=== PATIENT | female | born 1975 | race Caucasian/White ===

== ENCOUNTER → 2016-12-28 | Day surgery (SDC) | payer OTHER ==
[~2016-12-28] MED LIST: BUPIVACAINE HCL PF 0.75% 30 ML VIAL ONE; BUPIVACAINE/EPINEPHRINE 0.25% PF 10 ML VIAL ONE; LACTATED RINGER'S 1000 ML INJ 1,000 ML ONE; LIDOCAINE 1.5%/EPINEPHrine 1:200,000 PF SOLN 30 ML AMP ONE; MIDAZOLAM HCL 5 MG/ML VIAL (1 ML) ONE; ONDANSETRON HCL 4 MG/2 ML VIAL IV PUSH ONE; PROPOFOL 200 MG/20 ML AMP IV ONE; ZYRT10TA12 PO; ceFAZolin INJ 1,000 MG VIAL ONE
--- NOTE | 2016-12-28 15:36 | TN ---
cc: MAYDA SPEARS MD DATE OF SURGERY: 12/28/2016 ATTENDING PHYSICIAN/SURGEON Dr. Spears. PREOPERATIVE DIAGNOSIS Left shoulder impingement syndrome. POSTOPERATIVE DIAGNOSIS Left shoulder impingement syndrome. PROCEDURE Left shoulder arthroscopy with subacromial decompression including anterior acromioplasty and coracoacromial ligament release. PROCEDURE IN DETAIL Informed consent was obtained. The patient was taken to the operating room and placed in the supine position on the operating table. She was administered general anesthesia by Dr. Miller of the Anesthesia Department. The patient was placed in the lateral decubitus position with a beanbag and at that time her shoulder was placed through a range of motion. There was no evidence of adhesive capsulitis. The shoulder was then prepped with Betadine soap followed by Betadine paint. Sterile towels, sterile U drape, stockinette was applied to the hand and forearm. This was wrapped with Coban and the sterile rope was applied to the stockinette which had a hook for the shoulder unger. This was placed over the Accufix shoulder unger and a time-out was held and confirmed. At that time it was noted the patient had been given a gram of Ancef prior to initiation of the operative procedure. At that time an 18 gauge spinal needle was placed approximately 1 cm inferior to the posterior angle of the acromion and directed towards coracoid process. The shoulder joint was entered and infiltrated with 10 ccs of 0.25% Marcaine with epinephrine. At that time a small incision was made and the arthroscopic cannula was advanced into the shoulder joint. Diagnostic arthroscopy commenced. The biceps tendon appeared normal. Undersurface of the rotator cuff appeared normal. Subscapularis tendon appeared normal. There was some irritation and redundancy of the anterior labrum. The labrum attachment to the glenoid appeared secure. There were no significant arthritic changes noted in the glenohumeral joint. The inferior recess appeared normal. At that time an anterior portal was established and the labrum was probed. There was no detachment of the glenoid labrum from the glenoid. The redundant labrum/capsule was debrided with a shaver and at that time the shoulder was irrigated and suctioned and the cannulas were removed. The posterior cannula was then directed into the subacromial bursa. A straight lateral incision was made. Debridements of the bursal tissue was performed. Superior surface of the rotator cuff was intact although, there were several small areas with slight fraying from probable impingement. The undersurface of the acromion was identified as coracoacromial ligament. The coracoacromial ligament was released sharply with the basket forceps and shaved with the meniscal shaver. The arthroscopic bur was utilized to perform an anterior acromioplasty. Once this was complete all cannulas were removed and the skin incisions were closed anterior-posterior with a single 4-0 Nylon stitch. The lateral with two 4-0 Nylon in simple stitches. Band-Aids, 4x4s, ABD and tape were applied to the patient's shoulder. She was placed in a sling. She tolerated the procedure well and was then taken to the recovery room in stable condition. At the completion of the procedure sponge count, instrument count and needle counts were correct. Estimated blood loss was less than 10 ccs. MD KELLEY Mackenzie/VENKAT /2:34 PM /3:19 PM
== END | disposition home or self-care (01) ==
LOC: ESDC 11:23
PROVIDERS: ATTEND Orthopaedic Surgery
DX: M75.42 Impingement syndrome of left shoulder (principal)
CPT/HCPCS: 01630; 29822; 29826; 64415; J0690; J2250; J2405; J7120